=== PATIENT | male | born 1970 | race Caucasian/White ===

== ENCOUNTER 2018-06-07 10:59 | Emergency (ER) | payer SELFPAY ==
--- NOTE | 2018-06-07 11:05 | Emergency Department Record ---
History of Present Illness - General Stated Complaint: CHEST PAIN Time Seen by Provider: 06/07/18 10:59 Source: Patient Mode of Arrival: Ambulatory Limitations: No limitations - History of Present Illness Initial Comments: 47 yo male presents with chest pressure that started about 20 minutes ago. He was at work sitting at his desk at onset. The discomfort was a pressure. He had brief left arm discomfort that resolved. He took 4 baby aspirin prior to arrival. No cough, shortness of breath, recent illness. No known history of CAD. His PCP is Isidra Varela in [place]. He was adopted and knows no family history. Non smoker. He has been under stress at school. MD Complaint: Chest pain -: Minutes(s) (20) Onset: During rest Pain Location: Substernal Pain Radiation: LUE Severity: Moderate Quality: Heaviness Consistency: Constant Improves With: Nothing Worsens With: Nothing Context: Other Other Symptoms: Other - Related Data Home Medications Medication Instructions Recorded Confirmed Last Taken No Home Med [NO HOME MEDS] 06/07/18 06/07/18 Unknown Allergies Allergy/AdvReac Type Severity Reaction Status Date / Time Penicillins Allergy RASH Verified 06/07/18 11:01 Review of Systems Constitutional: Denies: Chills, Fever, Malaise, Weakness Eyes: Denies: Eye discharge ENT: Denies: Congestion, Throat pain Respiratory: Denies: Cough, Dyspnea Cardiovascular: Denies: Edema, Palpitations, Syncope Endocrine: Denies: Fatigue Gastrointestinal: Denies: Abdominal pain, Diarrhea, Nausea, Vomiting Genitourinary: Denies: Dysuria, Frequency, Hematuria Musculoskeletal: Denies: Arthralgia, Back pain Skin: Denies: Bruising, Change in color, Rash Neurological: Denies: Headache Psychiatric: Denies: Anxiety Hematological/Lymphatic: Denies: Blood Clots, Easy bleeding, Easy bruising Physical Exam - General General Appearance: Alert, Oriented x3, Cooperative, No acute distress Limitations: No limitations - Head Head exam: Normal inspection - Eye Eye exam: Normal appearance. negative: Conjunctival injection, Scleral icterus - ENT ENT exam: Normal exam Ear exam: Normal external inspection Nasal Exam: Normal inspection Mouth exam: Normal external inspection - Neck Neck exam: Normal inspection - Respiratory Respiratory exam: Normal lung sounds bilaterally. negative: Accessory muscle use, Respiratory distress, Rhonchi, Stridor, Wheezes - Cardiovascular Cardiovascular Exam: Regular rate, Normal rhythm, Normal heart sounds Peripheral Pulses: 2+: Radial (R), Radial (L) - GI/Abdominal GI/Abdominal exam: Soft. negative: Tenderness - Rectal Rectal exam: Deferred - exam: Deferred - Extremities Extremities exam: Normal inspection. negative: Calf tenderness, Pedal edema, Tenderness - Back Back exam: Reports: Normal inspection - Neurological Neurological exam: Alert, Oriented X3 - Psychiatric Psychiatric exam: Normal affect, Normal mood Course - Reevaluation(s) Reevaluation #1: EKG #1: 1055 Rate: 83 Rhythm: Sinus [place]: Normal Intervals: QTc 465 ST segments: NS flat T waves anterior, poor R wave Prior: None 06/07/18 11:04 The discomfort is slowly resolving at this time He took 4 baby aspirin already [employer] 06/07/18 11:08 06/07/18 11:47 Lab delay due difficult draw and IV start. Labs now sent 06/07/18 12:25 No acute changes on the CBC The patient is pain free with one nitro. BP remains elevated. 06/07/18 12:38 CMP delays due to lab hemolysis Troponin is negative [facility] Called. Patient requests [facility]. 06/07/18 12:[address] Gonzalez of [facility] cardiology. He will transfer the patient for HTN, Chest pain. Amlodipine 5mg given 06/07/18 12:53 06/07/18 13:11 CR is 0.9 with a BUN of 13 GFR is > 60. The second K hemolyzed as well. Lowest was 6.0. The patient was informed. I advised a repeat at [facility] given his normal renal function and very low likely that it is elevated. The patient has a room assigned at [facility]. 06/07/18 13:16 06/07/18 13:41 Final CXR read is negative. Medical Decision Making - Lab Data Result diagrams: 06/07/18 11:45 06/07/18 12:40 Disposition Disposition: Transfer Clinical Impression: Chest pain Qualifiers: Chest pain type: unspecified Qualified Code(s): R07.9 - Chest pain, unspecified Hypertension Qualifiers: Hypertension type: unspecified Qualified Code(s): I10 - Essential (primary) hypertension Disposition: Acute Care Hospital Transfer Transfer To: [facility] Reason For Transfer: Chest Pain Accepting Physician: Carlos Time Discussed w/Accepting Physician: 12:50 Condition: (1) Good Forms: Patient Portal Access Time of Disposition: 12:50 Quality - Quality Measures Quality Measures: N/A - Blood Pressure Screening Does Patient Have Any of the Following: No Blood Pressure Classification: Hypertensive Reading Systolic Measurement: 205 Diastolic Measurement: 126 Screening for High Blood Pressure: < Pre-Hypertensive BP, F/U Documented > [ [id number]] Pre-Hypertensive Follow-up Interventions: Referral to alternative/primary care provider.
[2018-06-07] MEDS ORDERED: NITROGLYCERIN 0.4MG SL TABLET #25 BTL SL PRN (11:15)
[2018-06-07 11:56] LABS: BASO % 0.2 % (0-6); EOS % 3.8 % (0-6); GRAN % 67.6 % (47-80); HEMATOCRIT 47.9 % (42.0-52.0); LYMPH % 18.6 % (16-45); MEAN CELL VOLUME 83.6 fl (81-97); MEAN CORPUSCULAR HEMOGLOBIN 27.9 pg (27-33); MEAN CORPUSCULAR HGB CONC 33.4 g/dl (32-36); MEAN PLATELET VOLUME 10.6 fl (7.4-10.4); MONO % 9.8 % (0-9); PLATELET COUNT 168 K/uL (130-400); RED BLOOD COUNT 5.73 M/uL (4.40-5.70); RED CELL DISTRIBUTION WIDTH 14.7 % (11.5-14.5); WHITE BLOOD COUNT W/O DIFF 9.3 K/uL (4.2-12.2)
[2018-06-07 12:51] LABS: INR 1.1; PROTHROMBIN TIME (PATIENT) 10.9 SECONDS (9.5-12.1)
[2018-06-07] MEDS ORDERED: AMLODIPINE BESYLATE 5MG TAB PO SCH (13:00)
[2018-06-07 13:06] LABS: GLUCOSE,RANDOM 93 mg/dL (74-109)
[2018-06-07 13:07] LABS: BLOOD UREA NITROGEN 13 mg/dL (6-20); CREATININE 0.9 mg/dL (0.7-1.2); EST GLOMERULAR FILTRATION RATE > 60 mL/min
[2018-06-07 13:08] LABS: ALBUMIN 4.5 g/dL (4.0-5.0); ALKALINE PHOSPHATASE 101 U/L (40-129); ALT/SGPT 38 U/L (<41); AST/SGOT 69 U/L (10.0-50.0)
[2018-06-08] MEDS ORDERED: AMLODIPINE BESYLATE 5MG TAB PO SCH (10:00)
--- NOTE | 2018-06-09 20:56 | RADIOLOGY REPORT ---
EXAM: CHEST 2 VIEWS HISTORY: DIFFICULTY IN BREATHING. TECHNIQUE: Frontal and lateral views of the chest were performed. FINDINGS: Heart size is normal. No pulmonary vascular congestion. No infiltrate or pleural effusion. Mild degenerative change of the thoracic spine. IMPRESSION: NO ACUTE DISEASE PROCESS. JOB NUMBER: [id number] MTDD
== END 2018-06-07 13:43 | disposition short-term general hospital (02) ==
LOC: ER 10:59
DX: R07.89 Other chest pain (principal); R06.00 Dyspnea, unspecified
CPT/HCPCS: 71046; 80053; 83735; 84484; 85025; 85610; 85730; 93005; 93010; 99285